=== PATIENT | male | born 1945 | race Caucasian/White ===

== ENCOUNTER → 2016-03-19 | Outpatient (CLI) | payer MEDICARE ==
[2015-05-30 10:52] VITALS: BP 116/62
[~2016-03-19] MED LIST: AMLO5TAB2 PO; ASPI-482 PO; HYDR12.53 PO; INSU100I13 SQ; INSU100V8 SQ; SIMV20TA3 PO
--- NOTE | 2016-03-19 15:29 | RAD ---
Chest, 2 views, 03/19/2016: History: Productive cough Comparison is made to a study from 05/08/2015. The heart size and pulmonary vascularity are normal. There are scattered calcified granulomata in the lungs. No acute infiltrates are seen. There is no evidence of pleural fluid. Moderate hypertrophic spurring is present in the spine. IMPRESSION: No acute cardiopulmonary abnormality is detected.
== END | disposition home or self-care (01) ==
LOC: RAD 14:52
PROVIDERS: ATTEND Physician Assistant Medical
DX: R05 Cough (principal)
CPT/HCPCS: 71020

== ENCOUNTER → 2017-03-31 | Outpatient (CLI) | payer MEDICARE ==
[2017-03-31] MEDS: REGADENOSON 0.4 MG/5 ML DISP.SYRIN. IV ×2 (11:33)
== END | disposition home or self-care (01) ==
LOC: NM 08:21
DX: I63.9 Cerebral infarction, unspecified (principal); I49.5 Sick sinus syndrome; I10 Essential (primary) hypertension; E11.9 Type 2 diabetes mellitus without complications; R06.00 Dyspnea, unspecified
CPT/HCPCS: 78452; 93017; 96374; 96375; 96376; A9500; J2785

== ENCOUNTER 2018-01-12 15:28 | Emergency (ER) | payer MEDICARE ==
[~2018-01-12] VITALS: Ht 188 cm; Wt 88.5 kg
[~2018-01-12 15:28] MED LIST changes: -AMLO5TAB2 PO; +AMLO5TAB7 PO
[2018-01-12] MEDS ORDERED: IV NORMAL SALINE 1000ML BAG 1,000 ML IV SCH (16:32)
[2018-01-12 16:39] LABS: BASO # 0.1 x10^3/uL (0.0-0.2); BASO % 1 % (0-3); EOS # 0.1 x10^3/uL (0.0-0.7); EOS % 2 % (0-3); HEMATOCRIT 45.4 % (39.0-53.0); HEMOGLOBIN 15.6 g/dL (13.0-17.5); LYMPH # 1.2 x10^3/uL (1.0-4.8); LYMPH % 19 % (24-48); MEAN CORPUSCULAR HEMOGLOBIN 30 pg (25-35); MEAN CORPUSCULAR HGB CONC 34 g/dL (31-37); MEAN CORPUSCULAR VOLUME 86 fL (79-100); MONO # 0.6 x10^3/uL (0.0-1.1); MONO % 10 % (0-9); NEUT # 4.5 x10^3uL (1.8-7.7); NEUT % 69 % (31-73); PLATELET COUNT 306 x10^3/uL (140-400); RED BLOOD COUNT 5.29 x10^6/uL (4.30-5.70); RED CELL DISTRIBUTION WIDTH 13.6 % (11.5-14.5); WHITE BLOOD COUNT 6.5 x10^3/uL (4.0-11.0)
[2018-01-12] MEDS ORDERED: KETOROLAC 30 MG/ML VIAL. IV ONE (16:45)
--- NOTE | 2018-01-12 17:01 | PHYS DOC ---
Past Medical History Past Medical History: Diabetes-Type II, Glaucoma, Hypertension, Stroke Additional Past Medical Histor: poor historian Additional Past Surgical Histo: right eye enucleation Smoking: Quit Greater Than 1 Year Alcohol Use: None Drug Use: None Adult General Chief Complaint Chief Complaint: FLANK PAIN HPI HPI Patient is a 72-year-old male who presents to the emergency department for evaluation. He states that for the past 2-3 days he has had pain in his left flank, radiating towards his left groin. He has not had any dysuria or hematuria. He has not had any vomiting or fever. He denies any other abdominal pain, dizziness, lightheadedness, chest pain or shortness of breath. There are no alleviating or exacerbating factors to his symptoms. Review of Systems Review of Systems Constitutional: Denies fever or chills [] Eyes: Denies change in visual acuity, redness, or eye pain [] HENT: Denies nasal congestion or sore throat [] Respiratory: Denies cough or shortness of breath [] Cardiovascular: The patient denies any shortness of breath, chest pain, palpitations, or orthopnea[] GI: Denies abdominal pain, nausea, vomiting, bloody stools or diarrhea [] : Denies dysuria or hematuria. Reports left flank pain. [] Musculoskeletal: Denies back pain or joint pain [] Integument: Denies rash or skin lesions [] Neurologic: Denies headache, focal weakness or sensory changes [] Endocrine: Denies polyuria or polydipsia [] All other systems were reviewed and found to be within normal limits, except as documented in this note. Current Medications Current Medications Current Medications Medications (Trade) Dose Ordered Sig/Vicente Start Time Stop Time Status Last Admin Dose Admin Ketorolac Tromethamine (Toradol 30mg Vial) 15 mg 1X ONCE 01/12/18 16:45 01/12/18 16:46 DC 01/12/18 16:45 15 MG Sodium Chloride 1,000 ml @ 1,000 mls/hr Q1H 01/12/18 16:32 01/12/18 17:31 DC 01/12/18 16:32 1,000 MLS/HR Allergies Allergies Allergies Coded Allergies Type Severity Reaction Last Updated Verified No Known Drug Allergies 04/13/13 No Physical Exam Physical Exam PHYSICAL EXAM: CONSTITUTIONAL: Well developed, well nourished HEAD: normocephalic, atraumatic EENT:.The right eye has been enucleated. The left eye is unremarkable, conjunctivae normal color, sclerae non-icteric; moist mucous membranes. NECK: Supple, non-tender; no meningismus. LUNGS: Lungs CTA, breathing even and unlabored. Normal air movement. HEART: Regular rate and rhythm, no murmur CHEST: No deformity; non-tender ABDOMEN: The abdomen is soft, and non-tender, no masses or bruits. EXTREM: Normal ROM; no deformity, no calf tenderness. Normal pulses palpable in all extremities. There is no pedal edema. SKIN: No rash; no diaphoresis NEURO: Alert; normal speech and cognition; CN's grossly intact; strength grossly intact without focal deficit. BACK: There is mild left-sided CVA TTP. GENITOURINARY: Normal external genitalia. The testicles are soft and nontender bilaterally, the scrotum and perineum appear normal. There is no tenderness to palpation in this area. Current Patient Data Vital Signs Vital Signs Date Time Temp Pulse Resp B/P (MAP) Pulse Ox O2 Delivery O2 Flow Rate FiO2 01/12/18 16:40 98.5 80 16 163/89 (113) 97 Room Air 98.5 Lab Values Laboratory Tests Test 01/12/18 16:24 01/12/18 16:55 White Blood Count 6.5 x10^3/uL (4.0-11.0) Red Blood Count 5.29 x10^6/uL (4.30-5.70) Hemoglobin 15.6 g/dL (13.0-17.5) Hematocrit 45.4 % (39.0-53.0) Mean Corpuscular Volume 86 fL (79-100) Mean Corpuscular Hemoglobin 30 pg (25-35) Mean Corpuscular Hemoglobin Concent 34 g/dL (31-37) Red Cell Distribution Width 13.6 % (11.5-14.5) Platelet Count 306 x10^3/uL (140-400) Neutrophils (%) (Auto) 69 % (31-73) Lymphocytes (%) (Auto) 19 % (24-48) L Monocytes (%) (Auto) 10 % (0-9) H Eosinophils (%) (Auto) 2 % (0-3) Basophils (%) (Auto) 1 % (0-3) Neutrophils # (Auto) 4.5 x10^3uL (1.8-7.7) Lymphocytes # (Auto) 1.2 x10^3/uL (1.0-4.8) Monocytes # (Auto) 0.6 x10^3/uL (0.0-1.1) Eosinophils # (Auto) 0.1 x10^3/uL (0.0-0.7) Basophils # (Auto) 0.1 x10^3/uL (0.0-0.2) Urine Collection Type Unknown Urine Color Yellow Urine Clarity Clear Urine pH 5.5 Urine Specific [place] >=1.030 Urine Protein 100 mg/dL (NEG-TRACE) Urine Glucose (UA) >=1000 mg/dL (NEG) Urine Ketones (Stick) Negative mg/dL (NEG) Urine Blood Trace (NEG) Urine Nitrite Negative (NEG) Urine Bilirubin Negative (NEG) Urine Urobilinogen Dipstick 1.0 mg/dL (0.2 mg/dL) Urine Leukocyte Esterase Negative (NEG) Urine RBC Occ /HPF (0-2) Urine WBC Occ /HPF (0-4) Urine Squamous Epithelial Cells Occ /LPF Urine Amorphous Sediment Present /HPF Urine Bacteria 0 /HPF (0-FEW) Urine Mucus Mod /LPF Sodium Level 136 mmol/L (136-145) Potassium Level 4.5 mmol/L (3.5-5.1) Chloride Level 102 mmol/L (98-107) Carbon Dioxide Level 28 mmol/L (21-32) Anion Gap 6 (6-14) Blood Urea Nitrogen 23 mg/dL (8-26) Creatinine 1.0 mg/dL (0.7-1.3) Estimated GFR (Cockcroft-Gault) 73.9 BUN/Creatinine Ratio 23 (6-20) H Glucose Level 324 mg/dL (70-99) H Calcium Level 9.1 mg/dL (8.5-10.1) Total Bilirubin 0.3 mg/dL (0.2-1.0) Aspartate Amino Transferase (AST) 19 U/L (15-37) Alanine Aminotransferase (ALT) 22 U/L (16-63) Alkaline Phosphatase 133 U/L (46-116) H Total Protein 6.6 g/dL (6.4-8.2) Albumin 3.1 g/dL (3.4-5.0) L Albumin/Globulin Ratio 0.9 (1.0-1.7) L Lipase 84 U/L (73-393) Laboratory Tests 01/12/18 16:24 Laboratory Tests 01/12/18 16:55 EKG EKG [] Radiology/Procedures Radiology/Procedures [] Course & Med Decision Making Course & Med Decision Making Pertinent Labs and Imaging studies reviewed. (See chart for details) [6:00 PM: Pt condition remains stable. Care turned over to Dr oglesby at shift change, pending CRP BP recheck, and final disposition. Report given. ] Dragon Disclaimer Dragon Disclaimer This electronic medical record was generated, in whole or in part, using a voice recognition dictation system. Departure Departure Impression: Primary Impression: Headache Additional Impression: Atypical chest pain Referrals: LIBAN NUR MD (PCP) Problem Qualifiers LIBAN WHITE MD Jan 12, 2018 17:01
[2018-01-12 17:03] LABS: BILIRUBIN,URINE NEGATIVE (NEG); CLARITY,URINE CLEAR; COLOR,URINE YELLOW; NITRITE,URINE NEGATIVE (NEG); PH,URINE 5.5; PROTEIN,URINE 100 mg/dL (NEG-TRACE)
[2018-01-12 17:09] LABS: CALCIUM 9.1 mg/dL (8.5-10.1); GFR 73.9; POTASSIUM 4.5 mmol/L (3.5-5.1)
[2018-01-12 17:15] LABS: ALBUMIN 3.1 g/dL (3.4-5.0); ALBUMIN/GLOBULIN RATIO 0.9 (1.0-1.7); TOTAL BILIRUBIN 0.3 mg/dL (0.2-1.0); TOTAL PROTEIN 6.6 g/dL (6.4-8.2)
[2018-01-12 17:20] LABS: AMORPHOUS SEDIMENT,UR PRESENT /HPF; BACTERIA,URINE 0 /HPF (0-FEW); RBC,URINE OCC /HPF (0-2); SQUAMOUS EPITHELIAL CELL,UR OCC /LPF; WBC,URINE OCC /HPF (0-4)
--- NOTE | 2018-01-12 18:06 | RAD ---
PQRS Compliance statement: One or more of the following individualized dose reduction techniques were utilized for this examination: 1. Automated exposure control. 2. Adjustment of the mA and/or kV according to patient size. 3. Use of iterative reconstruction technique. Indication:FLANK PAIN PREV SENT TECHNIQUE: CT abdomen and pelvis without IV contrast with multiplanar reformats. COMPARISON: 04/13/2013 FINDINGS: Limited evaluation of solid abdominal and pelvic organs due to lack of IV contrast. Heart is normal in size. No pericardial or pleural effusion. Scattered calcified granulomas are seen in the lungs. Noncontrast appearance of the liver, spleen, gallbladder, pancreas, adrenals within normal limits. No nephrolithiasis or hydronephrosis. No enlarged retroperitoneal or pelvic adenopathy. No free pelvic fluid or ascites. Small fat-containing left inguinal hernia. No bowel obstruction. Normal appendix. The prostate and seminal vesicles show no large mass. Urinary bladder demonstrates no radiopaque stones. No pneumoperitoneum. No suspicious bony lesion. Bilateral L5 pars defect. Multilevel moderate to advanced degenerative disc disease is seen. IMPRESSION: Limited evaluation of solid abdominal and pelvic organs due to lack of IV contrast. 1. No nephrolithiasis or hydronephrosis. Electronically signed by: Porfirio Sanders DO (01/12/2018 6:02 PM) [facility]
[2018-01-12 18:40] VITALS: BP 168/89
[2018-01-12] MEDS ORDERED: TRAM50TA PO (19:18)
[2018-01-12] MEDS ORDERED: HYOS0.12 PO (19:18)
[2018-01-12] MEDS ORDERED: METO10TA81 PO (19:18)
== END 2018-01-12 19:35 | disposition home or self-care (01) ==
LOC: ER 15:28
DX: R07.89 Other chest pain (principal); R51 Headache; R10.30 Lower abdominal pain, unspecified; E11.39 Type 2 diabetes mellitus with other diabetic ophthalmic complication; H42 Glaucoma in diseases classified elsewhere; I10 Essential (primary) hypertension; Z86.73 Personal history of transient ischemic attack (TIA), and cerebral infarction without residual deficits; Z87.891 Personal history of nicotine dependence
CPT/HCPCS: 36415; 74176; 80053; 81001; 83690; 85025; 96374; 99284; J1885; J7030; 96361

== ENCOUNTER → 2018-05-27 | Outpatient (CLI) | payer MEDICARE ==
[~2018-05-27] MED LIST changes: +AMLO5TAB10 PO; -AMLO5TAB7 PO; -HYDR12.53 PO; +HYDR12.575 PO; +HYOS0.12 PO; +METO10TA81 PO; +TRAM50TA PO
--- NOTE | 2018-05-27 14:10 | RAD ---
Focused sonographic evaluation of the left inguinal region 05/27/2018 INDICATION: Left inguinal pain. Evaluate for hernia COMPARISON STUDY: CT of the abdomen and pelvis January 12, 2018 Discussion: Ultrasound evaluation of left groin was performed. Static images are submitted to PACS. No bowel containing inguinal hernia is identified. No other focal abnormal mass or fluid collection is seen. Normal-appearing small lymph nodes are seen in left groin. IMPRESSION: Unremarkable sonographic appearance of the left inguinal region Electronically signed by: Fredo Gutierrez MD (05/27/2018 2:07 PM) [id number]
== END | disposition home or self-care (01) ==
LOC: US 13:29
PROVIDERS: ATTEND Physician Assistant Medical
DX: R10.32 Left lower quadrant pain (principal)
CPT/HCPCS: 76881

== ENCOUNTER 2019-05-22 08:41 | Emergency (ER) | payer MEDICARE ==
[~2019-05-22] VITALS: Ht 188 cm; Wt 90.9 kg
[~2019-05-22 08:41] MED LIST changes: +APIX5TAB PO; +CARV12.53 PO; +DONE10TA7 PO; +FURO40TA4 PO; +GLIM4TAB8 PO; +INSU100I27 SQ; +LISI10TA2 PO; +METF10007 PO; +SACU1TAB PO; +SIMV20TA18 PO; -SIMV20TA3 PO; +SITA100T PO; +SPIR25TA5 PO
--- NOTE | 2019-05-22 09:31 | RAD ---
EXAM: CT Head without IV contrast INDICATION: Altered mental status TECHNIQUE: Multi-detector row CT images were obtained of the head without the use of IV contrast. All CT scans performed at this facility utilize dose optimization techniques as appropriate to the exam, including the following: Automated exposure control and adjustment of the mA and/or KV according to patient size (this includes techniques or standardized protocols for targeted exams where dose is indication/reason for exam). COMPARISON: None FINDINGS: BRAIN PARENCHYMA: No evidence of acute intraparenchymal hemorrhage or infarct. Generalized parenchymal volume loss and white matter low density compatible chronic ischemic microvascular changes present in the periventricular white matter and centrum semiovale. Bilateral basal ganglial calcifications are also noted. VENTRICLES & EXTRA-AXIAL SPACES: Ventricles are within normal limits. Basilar cisterns are patent. No pathologic extra-axial fluid collection or mass. The posterior right M2 division MCA branches are asymmetrically denser than the right which could reflect atherosclerotic calcifications. ORBITS: Right globe enucleation. Left orbital contents are unremarkable. SINUSES: Right maxillary sinus mucous retention cyst or polyp. Otherwise paranasal sinuses and mastoid air cells are clear. OSSEOUS & SOFT TISSUES: Calvarium and skull base are intact. IMPRESSION: No acute intracranial pathology on noncontrast head CT. Electronically signed by: Heather Pizarro MD (05/22/2019 9:28 AM) [id number]
[2019-05-22 09:32] LABS: BASO # 0.1 x10^3/uL (0.0-0.2); BASO % 1 % (0-3); EOS # 0.5 x10^3/uL (0.0-0.7); EOS % 4 % (0-3); HEMATOCRIT 44.3 % (39.0-53.0); HEMOGLOBIN 14.6 g/dL (13.0-17.5); LYMPH % 9 % (24-48); MEAN CORPUSCULAR HEMOGLOBIN 26 pg (25-35); MEAN CORPUSCULAR HGB CONC 33 g/dL (31-37); MEAN CORPUSCULAR VOLUME 78 fL (79-100); MONO # 0.8 x10^3/uL (0.0-1.1); MONO % 7 % (0-9); NEUT # 9.2 x10^3/uL (1.8-7.7); NEUT % 79 % (31-73); PLATELET COUNT 268 x10^3/uL (140-400); RED BLOOD COUNT 5.66 x10^6/uL (4.30-5.70); RED CELL DISTRIBUTION WIDTH 17.1 % (11.5-14.5); WHITE BLOOD COUNT 11.6 x10^3/uL (4.0-11.0)
[2019-05-22 09:44] LABS: CALCIUM 8.9 mg/dL (8.5-10.1); CREATININE 1.4 mg/dL (0.7-1.3); GFR 49.8; POTASSIUM 4.1 mmol/L (3.5-5.1)
--- NOTE | 2019-05-22 09:44 | RAD ---
CHEST AP ONLY Clinical History: Technique: Cough 2 view of the chest was obtained at 05/22/2019 9:01 AM. Comparison: May 07, 2019. Findings: The cardiomediastinal silhouette is normal. The pulmonary vasculature is normal. There is vague patchy opacity in the lung bases. There are few calcified granuloma bilaterally. Impression: Mild basal infiltrates appears improved. Electronically signed by: Mitul Mosley III, MD (05/22/2019 9:41 AM) [id number]
[2019-05-22 09:58] LABS: ALBUMIN 2.8 g/dL (3.4-5.0); ALBUMIN/GLOBULIN RATIO 0.8 (1.0-1.7); TOTAL BILIRUBIN 0.4 mg/dL (0.2-1.0); TOTAL PROTEIN 6.3 g/dL (6.4-8.2)
--- NOTE | 2019-05-22 10:00 | EKG ---
[facility] [address] [place] [address] Test Date: 2019-05-22 Test Time: 09:03:44 Pat Name: DEMARCO CRUZ Department: Room: Gender: M Welding Machine Tender: STAN : 1945 Requested By: ARAVIND VACA Order Number: [id number] Reading MD: Measurements Intervals [place] Rate: 67 P: 48 DC: 192 QRS: -32 QRSD: 96 T: -156 QT: 412 QTc: 438 Interpretive Statements SINUS RHYTHM VENTRICULAR PREMATURE COMPLEX(ES) ABNORMAL LEFT AXIS DEVIATION QRS(T) CONTOUR ABNORMALITY CONSIDER ANTEROSEPTAL MYOCARDIAL DAMAGE T ABNORMALITY IN ANTEROLATERAL LEADS ABNORMAL ECG RI6.01 No previous ECG available for comparison
[2019-05-22 10:20] LABS: BILIRUBIN,URINE NEGATIVE (NEG); CLARITY,URINE CLEAR; COLOR,URINE YELLOW; NITRITE,URINE NEGATIVE (NEG); PH,URINE 6.5 (<5.0-8.0); PROTEIN,URINE 30 mg/dL (NEG-TRACE)
[2019-05-22 10:48] LABS: BACTERIA,URINE 0 /HPF (0-FEW); SQUAMOUS EPITHELIAL CELL,UR OCC /LPF; WBC,URINE OCC /HPF (0-4)
--- NOTE | 2019-05-22 12:06 | PHYS DOC ---
Past Medical History Past Medical History: CHF, CVA, Dementia, Diabetes-Type II, Glaucoma, High Cholesterol, Hypertension, Stroke, Other Additional Past Medical Histor: PE,CARDIOMYOPATHY,POLIO,HEMIPLEGIA/HEMIPARESIS,NEUROPATHY Past Surgical History: Other Additional Past Surgical Histo: right eye enucleation -UNKNOWN 05/07/19 Smoking Status: Never Smoker Alcohol Use: None Drug Use: None Adult General Chief Complaint Chief Complaint: ALTERED MENTAL STATUS [facility] HPI Patient is a 74 year old male presenting from a shelter with a chief complaint of altered mental status. Patient has a history of dementia. Staff state that he was more altered than normal. Facility states that patient woke up this morning had low blood sugar is 63. Patient is given food to eat and later checked that his blood sugar was within normla limits. Even when the blood sugar was within normal limits, patient did not act appropriately per staff. He was sleepy and he did not want to wake up. Review of Systems Review of Systems Constitutional: Denies fever or chills [] Eyes: Denies change in visual acuity, redness, or eye pain [] HENT: Denies nasal congestion or sore throat [] Respiratory: Denies cough or shortness of breath [] Cardiovascular: No additional information not addressed in HPI [] GI: Denies abdominal pain, nausea, vomiting, bloody stools or diarrhea [] Musculoskeletal: Denies back pain or joint pain [] Neurologic: Denies headache, focal weakness or sensory changes [] All other systems were reviewed and found to be within normal limits, except as documented in this note. Allergies Allergies Allergies Coded Allergies Type Severity Reaction Last Updated Verified No Known Drug Allergies 04/13/13 No Physical Exam Physical Exam Constitutional: Well developed, well nourished, no acute distress, non-toxic appearance. [] HENT: Normocephalic, atraumatic Neck: Normal range of motion, no tenderness, supple, no stridor. [] Cardiovascular:Heart rate regular rhythm, no murmur [] Lungs & Thorax: Bilateral breath sounds clear to auscultation [] Abdomen: Bowel sounds normal, soft, no tenderness, no masses, no pulsatile masses. [] Skin: Warm, dry, no erythema, no rash. [] Back: No tenderness, no CVA tenderness. [] Extremities: No tenderness, no cyanosis, no clubbing, ROM intact, no edema. [] Neurologic: Alert [] Current Patient Data Vital Signs Vital Signs Date Time Temp Pulse Resp B/P (MAP) Pulse Ox O2 Delivery O2 Flow Rate FiO2 05/22/19 13:00 79 17 146/84 (104) 95 Room Air 05/22/19 09:00 98.2 98.2 Lab Values Laboratory Tests Test 05/22/19 09:09 05/22/19 09:11 05/22/19 10:00 Glucose (Fingerstick) 126 mg/dL (70-99) H White Blood Count 11.6 x10^3/uL (4.0-11.0) H Red Blood Count 5.66 x10^6/uL (4.30-5.70) Hemoglobin 14.6 g/dL (13.0-17.5) Hematocrit 44.3 % (39.0-53.0) Mean Corpuscular Volume 78 fL (79-100) L Mean Corpuscular Hemoglobin 26 pg (25-35) Mean Corpuscular Hemoglobin Concent 33 g/dL (31-37) Red Cell Distribution Width 17.1 % (11.5-14.5) H Platelet Count 268 x10^3/uL (140-400) Neutrophils (%) (Auto) 79 % (31-73) H Lymphocytes (%) (Auto) 9 % (24-48) L Monocytes (%) (Auto) 7 % (0-9) Eosinophils (%) (Auto) 4 % (0-3) H Basophils (%) (Auto) 1 % (0-3) Neutrophils # (Auto) 9.2 x10^3/uL (1.8-7.7) H Lymphocytes # (Auto) 1.0 x10^3/uL (1.0-4.8) Monocytes # (Auto) 0.8 x10^3/uL (0.0-1.1) Eosinophils # (Auto) 0.5 x10^3/uL (0.0-0.7) Basophils # (Auto) 0.1 x10^3/uL (0.0-0.2) Sodium Level 143 mmol/L (136-145) Potassium Level 4.1 mmol/L (3.5-5.1) Chloride Level 103 mmol/L (98-107) Carbon Dioxide Level 31 mmol/L (21-32) Anion Gap 9 (6-14) Blood Urea Nitrogen 36 mg/dL (8-26) H Creatinine 1.4 mg/dL (0.7-1.3) H Estimated GFR (Cockcroft-Gault) 49.8 BUN/Creatinine Ratio 26 (6-20) H Glucose Level 113 mg/dL (70-99) H Calcium Level 8.9 mg/dL (8.5-10.1) Total Bilirubin 0.4 mg/dL (0.2-1.0) Aspartate Amino Transferase (AST) 20 U/L (15-37) Alanine Aminotransferase (ALT) 20 U/L (16-63) Alkaline Phosphatase 109 U/L (46-116) Troponin I Quantitative < 0.017 ng/mL (0.000-0.055) Total Protein 6.3 g/dL (6.4-8.2) L Albumin 2.8 g/dL (3.4-5.0) L Albumin/Globulin Ratio 0.8 (1.0-1.7) L Urine Collection Type U cath Urine Color Yellow Urine Clarity Clear Urine pH 6.5 (<5.0-8.0) Urine Specific [place] 1.015 (1.000-1.030) Urine Protein 30 mg/dL (NEG-TRACE) Urine Glucose (UA) Negative mg/dL (NEG) Urine Ketones (Stick) Negative mg/dL (NEG) Urine Blood Negative (NEG) Urine Nitrite Negative (NEG) Urine Bilirubin Negative (NEG) Urine Urobilinogen Dipstick 1.0 mg/dL (0.2 mg/dL) Urine Leukocyte Esterase Negative (NEG) Urine RBC 1-2 /HPF (0-2) Urine WBC Occ /HPF (0-4) Urine Squamous Epithelial Cells Occ /LPF Urine Transitional Epithelial Cells Occ /LPF Urine Bacteria 0 /HPF (0-FEW) Urine Mucus Slight /LPF Laboratory Tests 05/22/19 09:11 Laboratory Tests 05/22/19 09:11 EKG EKG EKG interpretation: 05/22/2019 HR: 86 Regular intervals with PVCs Left axis deviation nonspecific ST changes No STEMI Radiology/Procedures Radiology/Procedures [] Impressions: CT head does not show any acute disease Chest x-ray does not show any acute disease Course & Med Decision Making Course & Med Decision Making Ordered CT head which does not show any acute disease. Pertinent Labs and Imaging studies reviewed. (See chart for details) Due to MENTAL STATUS I ORDERED A CT SCAN OF HIS HEAD. CT SCAN DOES NOT SHOW ANY ACUTE CHANGES. Chest x-ray does not show any acute disease. Chest x-ray does not show any acute disease Labs are within normal limits. UA does not show UTI. EKG does not show any acute changes. Troponin is negative. Currently patient is awake and talking appropriately. Patient wants to be discharged back to the nursing facility. Dragon Disclaimer Dragon Disclaimer This electronic medical record was generated, in whole or in part, using a voice recognition dictation system. Departure Departure Impression: Primary Impression: Altered mental status, unspecified Disposition: 01 HOME, SELF-CARE Condition: STABLE Referrals: LIBAN NUR MD (PCP) Patient Instructions: Altered Mental Status Additional Instructions: Patient instructed to follow up with PCP in one to 2 days. Appropriate discharge instructions given to patient. Patient instructed to return to the due to symptoms worsen or if any concerns. ARAVIND VACA DO May 22, 2019 12:06
[2019-05-22 13:00] VITALS: BP 146/84
== END 2019-05-22 13:26 | disposition home or self-care (01) ==
LOC: ER 08:41
DX: R41.82 Altered mental status, unspecified (principal); E11.39 Type 2 diabetes mellitus with other diabetic ophthalmic complication; H40.9 Unspecified glaucoma; E78.00 Pure hypercholesterolemia, unspecified; I11.0 Hypertensive heart disease with heart failure; I50.9 Heart failure, unspecified; F03.90 Unspecified dementia, unspecified severity, without behavioral disturbance, psychotic disturbance, mood disturbance, and anxiety; E11.40 Type 2 diabetes mellitus with diabetic neuropathy, unspecified; Z86.73 Personal history of transient ischemic attack (TIA), and cerebral infarction without residual deficits; Z86.711 Personal history of pulmonary embolism
CPT/HCPCS: 36415; 70450; 71045; 80053; 81001; 82962; 84484; 85025; 93005; 99285; P9612